=== PATIENT | female | born 2005 | race African-American/Black ===

== ENCOUNTER → 2024-11-14 12:35 | Outpatient (CLI) | payer OTHER, SELFPAY ==
[2024-11-14 13:29] LABS: Add Manual Diff / Slide Review NO; Hematocrit 37.5 % (36-46); Hemoglobin 13.1 g/dL (12.0-16.0); Lymphocytes Absolute Auto 1700 /uL (1100-4500); Mean Corpuscular HGB Conc 35.1 % (30-36); Mean Corpuscular Hemoglobin 32.5 PG (26-34); Mean Corpuscular Volume 92.6 fL (80-100); Platelet Count 280 X10^3/uL (150-400)
[2024-11-14 14:43] LABS: Urine N gonorrhoeae NOT DETECTED
[2024-11-14 15:30] LABS: Urine Chlamydia NOT DETECTED
[2024-11-15 17:08] LABS: Hepatitis B Surface Antigen NEGATIVE s/c (NEGATIVE)
[2024-11-15 17:23] LABS: HIV 1 & 2 Ab/Ag 4th Gen Combo NEGATIVE (NEGATIVE); Hep C Virus Ab w/Reflex Quant NEGATIVE s/c (NEGATIVE)
== END ==
PROVIDERS: Referring Provider Obstetrics & Gynecology; Visit Provider Obstetrics & Gynecology
DX: Z34.01 Encounter for supervision of normal first pregnancy, first trimester (principal); Z3A.14 14 weeks gestation of pregnancy
CPT/HCPCS: 36415; 80055; 86787; 86803; 86850; 86900; 86901; 87389; 87491; 87591

== ENCOUNTER → 2024-12-12 10:04 | Outpatient (CLI) | payer OTHER, SELFPAY ==
[2024-12-15 13:10] LABS: AFP, Serum 44.6 ng/mL (.); Estriol, Free 0.94 ng/mL (.); Inhibin A, Dimeric 250.73 pg/mL (.); Inhibin A, MoM 1.69 (.); Maternal Ethnicity Black (.); T18 Risk by Age 1:4421 (.); hCG, MoM 1.78 (.); hCG, Serum 47174 mIU/mL (.)
== END ==
PROVIDERS: Referring Provider Obstetrics & Gynecology; Visit Provider Obstetrics & Gynecology
DX: Z36.0 Encounter for antenatal screening for chromosomal anomalies (principal)
CPT/HCPCS: 36415; 82105; 82677; 84702; 86336

== ENCOUNTER → 2024-12-19 08:21 | Outpatient (CLI) | payer OTHER, SELFPAY ==
--- NOTE | 2024-12-19 08:23 | DI.US.S_ITS ---
PROCEDURE: US OB >= 14 WEEKS FETUS INDICATIONS: 20 wk anatomy scan OUTSIDE/PRIOR DATING DATA: Last menstrual period (LMP): 08/06/2024. LMP-based estimated date of delivery (MARVEL): 05/13/2025. First dating scan (date and location): 11/14/2024. Estimated date of delivery (MARVEL) from first dating scan: 05/10/2025. The calculations are made using the working MARVEL of 05/13/2025. TECHNIQUE: Real-time scanning was performed of the fetus, with image documentation and biometric measurements. Endovaginal scanning: Not performed COMPARISON: None. FINDINGS: General: A single living intrauterine gestation is present. Presentation: Variable. Placenta: Placental position is anterior , without previa. Marginal insertion of the cord on the placenta approximately 1.7 cm from the right inferior placental edge. Amniotic fluid index: 18.5 cm cm, normal range is 5-24 cm. Single deepest vertical pocket is 6.0 cm. heart rate: 141 beats per minute. Maternal cervical canal: 3.4 cm long. Normal lower limit is 2.5 cm. Report any funneling of internal cervical os: % of canal length, shape (U or V), width or any U-shaped funneling. biometrics: Biparietal diameter: 4.3 cm, 19 weeks 0 days Head circumference: 15.9 cm, 18 weeks 5 days Abdominal circumference: 14.9 cm, 20 weeks 1 day Femur length: 3.0 cm, 19 weeks 1 day Clinically estimated gestational age: 19 weeks 2 days Composite gestational age from present scan: 19 weeks 2 days Estimated weight and percentile: 302 g, 65th percentile Anatomic survey: Neuro: Ventricles are non-dilated at less than 10 mm. Cisterna magna is normal at 3-11 mm. Cerebellum is normal in size and morphology. Nuchal skin fold: Normal at less than 6 mm between 14-21 weeks gestational age. Face: Nose and lips, facial profile are normal. Spine: No evidence for spina bifida. Heart: 4-chambered heart is present, with normal ventricular outflow tracts. Diaphragm: Diaphragm is intact. Stomach: Left-sided stomach is present. Kidneys: No hydronephrosis. Normal is less than 5 mm in 2nd trimester, less than 7 mm in 3rd trimester. Cord: 3-vessel cord has orthotopic insertion. Bladder: Normal in size. Extremities: All 4 extremities identified. IMPRESSION: 1. Living 2nd trimester intrauterine with no sonographic evidence of complications. Current ultrasound age is equal to clinical age. 2. Normal 2nd trimester anatomy study. 3. Marginal insertion of the cord approximately 1.7 cm from the inferior edge of the placenta. We strive to produce accurate, complete, and clear reports of imaging services. To assist us in improving patient care, this report was composed using standard report templates and voice recognition software. Therefore, it may contain abnormal punctuation, insertions and/or omissions. Occasional wrong-word or sound-alike substitutions may occur. Though we review the report and make efforts to correct it, we do recommend that the report be read carefully in proper context to recognize any text inaccuracies. Dictated by: Juan Manuel Hess M.D. on 12/19/2024 at 21:31 Approved by: Juan Manuel Hess M.D. on 12/19/2024 at 21:34
[2024-12-19 11:11] LABS: Natera Collection Specimen Collected
== END ==
PROVIDERS: Referring Provider Obstetrics & Gynecology; Visit Provider Obstetrics & Gynecology
DX: Z34.82 Encounter for supervision of other normal pregnancy, second trimester (principal); Z3A.19 19 weeks gestation of pregnancy
CPT/HCPCS: 36415; 76811

== ENCOUNTER → 2025-01-02 11:42 | Outpatient (CLI) | payer OTHER, SELFPAY | PROVIDERS: Visit Provider Obstetrics & Gynecology | DX: Z34.80 Encounter for supervision of other normal pregnancy, unspecified trimester (principal); Z3A.18 18 weeks gestation of pregnancy | CPT/HCPCS: 87086 ==

== ENCOUNTER → 2025-02-06 08:24 | Outpatient (CLI) | payer OTHER, SELFPAY ==
[2025-02-06 09:55] LABS: Hematocrit 34.0 % (36-46); Hemoglobin 12.0 g/dL (12.0-16.0)
[2025-02-06 10:13] LABS: GTT (PREG) 1 Hour PP 50gm Dose 96 mg/dL (76-139)
== END ==
PROVIDERS: Referring Provider Obstetrics & Gynecology; Visit Provider Obstetrics & Gynecology
DX: Z13.0 Encounter for screening for diseases of the blood and blood-forming organs and certain disorders involving the immune mechanism (principal); Z13.1 Encounter for screening for diabetes mellitus
CPT/HCPCS: 36415; 82950; 85014; 85018

== ENCOUNTER → 2025-03-13 13:41 | Outpatient (ROUT) | payer OTHER, SELFPAY | PROVIDERS: Visit Provider Obstetrics & Gynecology | DX: N39.0 Urinary tract infection, site not specified (principal) | CPT/HCPCS: 87086 ==